=== PATIENT | female | born 1955 | race African-American/Black ===

== ENCOUNTER → 2018-08-19 | Outpatient (CLI) | payer OTHER ==
[2017-10-29 23:59] VITALS: BP 144/77
[~2018-08-19] MED LIST: AMLO1TAB2 PO; ASPI1TAB31 PO; ASPI325T11 PO; CARV12.5 PO; CARV6.2541 PO; LISI10TA2 PO; LORA-254 PO; LORA10TA3 PO; METO25TA4 PO; NAPR-514 PO; PROP10TA PO; XOPENEX HFA15 GM IH
--- NOTE | 2018-08-23 13:37 | RAD ---
DATE: 08/19/2018 EXAM: DIGITAL SCREEN BILAT W/CAD HISTORY: Routine screen COMPARISON: 09/21/2010 This study was interpreted with the benefit of Computerized Aided Detection (CAD). Breast Density: HETERO The breast parenchyma is heterogenously dense, which could reduce sensitivity of mammography. Breast parenchyma level C. FINDINGS: The breasts are heterogeneous in a nodular pattern. No new or enlarging breast densities are seen. No spiculated mass or architectural distortion is evident. No suspicious microcalcifications are seen. IMPRESSION: Stable mammograms without evidence of malignancy. BI-RADS CATEGORY: 2 BENIGN FINDING(S) RECOMMENDED FOLLOW-UP: 12M 12 MONTH FOLLOW-UP PQRS compliance statement: Patient information was entered into a reminder system with a target due date for the next mammogram. Mammography is a sensitive method for finding small breast cancers, but it does not detect them all and is not a substitute for careful clinical examination. A negative mammogram does not negate a clinically suspicious finding and should not result in delay in biopsying a clinically suspicious abnormality. "Our facility is accredited by the [employer]."
== END | disposition home or self-care (01) ==
LOC: MERGE 15:25 → MAMMO 15:25
PROVIDERS: ATTEND Nurse Practitioner Family
DX: Z12.31 Encounter for screening mammogram for malignant neoplasm of breast (principal)
CPT/HCPCS: 77067

== ENCOUNTER 2018-08-26 20:10 | Emergency (ER) | payer SELFPAY ==
[~2018-08-26] VITALS: Ht 165.1 cm; Wt 68.0 kg
--- NOTE | 2018-08-26 20:46 | PHYS DOC ---
Past History Past Medical History: Hypertension, Hypothyroid Past Surgical History: No Surgical History Smoking: Cigarettes Additional Smoking Information: 1/2 PACK Alcohol Use: None Drug Use: None Adult General Chief Complaint Chief Complaint: HEADACHE HPI HPI Patient is a 63 year old female who presents with complaint of frontal headache. Patient states her symptoms have been present over the past 2 days. Patient states that she is having mild headache that has been somewhat responsive to Tylenol, however she states that after it wears off she continues to have headache. Denies any associated difficulty with speech or swallowing, vision changes, numbness, or weakness. Patient states that she has been under an increased amount of stress caring for a family member and states that she may not be sleeping as well as she had been. Also admits that she may not be drinking enough fluids. Denies any fever, shortness of breath, chest pain, sinus pressure, vomiting, or abdominal pain. Review of Systems Review of Systems Constitutional: Denies fever or chills [] Eyes: Denies change in visual acuity, redness, or eye pain [] HENT: Denies nasal congestion or sore throat [] Respiratory: Denies cough or shortness of breath [] Cardiovascular: No additional information not addressed in HPI [] GI: Denies abdominal pain, nausea, vomiting, bloody stools or diarrhea [] : Denies dysuria or hematuria [] Musculoskeletal: Denies back pain or joint pain [] Integument: Denies rash or skin lesions [] Neurologic: Headache, denies focal weakness or sensory changes [] All other systems were reviewed and found to be within normal limits, except as documented in this note. Allergies Allergies Allergies Coded Allergies Type Severity Reaction Last Updated Verified No Known Drug Allergies 12/26/14 No Physical Exam Physical Exam Constitutional: Well developed, well nourished, no acute distress, non-toxic appearance. [] HENT: Normocephalic, atraumatic, bilateral external ears normal, oropharynx moist, no oral exudates, nose normal. [] Eyes: PERRLA, EOMI, conjunctiva normal, no discharge. [] Neck: Normal range of motion, no tenderness, supple, no stridor. [] Cardiovascular:Heart rate regular rhythm, no murmur [] Lungs & Thorax: Bilateral breath sounds clear to auscultation [] Abdomen: Bowel sounds normal, soft, no tenderness, no masses, no pulsatile masses. [] Skin: Warm, dry, no erythema, no rash. [] Back: No tenderness, no CVA tenderness. [] Extremities: No tenderness, no cyanosis, no clubbing, ROM intact, no edema. [] Neurologic: Alert and oriented X 3, normal motor function, normal sensory function, no focal deficits noted. [] Current Patient Data Vital Signs Vital Signs Date Time Temp Pulse Resp B/P (MAP) Pulse Ox O2 Delivery O2 Flow Rate FiO2 08/26/18 20:15 98.5 82 16 100 Room Air Lab Results Not performed EKG EKG Not performed[] Radiology/Procedures Radiology/Procedures Not performed[] Course & Med Decision Making Course & Med Decision Making Pertinent Labs and Imaging studies reviewed. (See chart for details) Patient's exam is benign. Patient's headache does not appear to be secondary to severe cause. Likely combination of stress, mild dehydration, and overexertion. The patient was given ibuprofen in the emergency department. Advised to increase fluid intake, rest, and to continue with low-dose ibuprofen and Tylenol for outpatient treatment. Advised follow-up with primary doctor in 5 days if symptoms are not improving and return to emergency department for any worsening symptoms. Patient was understanding and in agreement with treatment plan. Dragon Disclaimer Dragon Disclaimer This electronic medical record was generated, in whole or in part, using a voice recognition dictation system. Departure Departure: Impression: Primary Impression: Generalized headache Disposition: 01 HOME, SELF-CARE Condition: GOOD Referrals: LOUISE LYONS DO (PCP) Patient Instructions: General Headache Without Cause Additional Instructions: You may take [id number] ibuprofen 1-2 tablets every 6 hours as needed for headache for the next 5 days. You may also take extra strength Tylenol 1-2 tablets every 6 hours as needed for pain. Follow-up the primary doctor in 5-7 days. Return to the emergency department for any worsening symptoms. BG HOYT MD Aug 26, 2018 20:46
[2018-08-26] MEDS ORDERED: IBUPROFEN 400 MG TABLET. PO ONE (20:48)
[2018-08-26] MEDS: IBUPROFEN 400 MG TABLET. PO ONE (20:53)
[2018-08-26 20:54] VITALS: BP 107/83
== END 2018-08-26 20:54 | disposition home or self-care (01) ==
LOC: ER 20:10
DX: R51 Headache (principal); I10 Essential (primary) hypertension; E03.9 Hypothyroidism, unspecified; F17.210 Nicotine dependence, cigarettes, uncomplicated
CPT/HCPCS: 99282

== ENCOUNTER 2019-03-03 09:23 | Emergency (ER) | payer SELFPAY ==
[~2019-03-03] VITALS: Ht 165.1 cm; Wt 67.3 kg
[2019-03-03] MEDS ORDERED: KETOROLAC 15 MG/ML VIAL. IM ONE (09:45)
--- NOTE | 2019-03-03 10:02 | RAD ---
Examination: WRIST 3V LEFT History: Pain Comparison/Correlation: None Findings: Total 3 images of the left wrist were obtained. No acute fracture or bony destruction. Soft tissues are unremarkable. Mild narrowing of the first carpometacarpal joint suggested. Impression: No suspicious process. Electronically signed by: Jeromy Concepcion MD (03/03/2019 9:59 AM) [id number]
[2019-03-03] MEDS ORDERED: MELO7.5T29 PO (10:16)
[2019-03-03] MEDS ORDERED: METH4TAB2 PO (10:16)
--- NOTE | 2019-03-03 10:17 | PHYS DOC ---
Past History Past Medical History: Hypertension, Hypothyroid Past Surgical History: Other Smoking: Cigarettes Alcohol Use: None Drug Use: None Adult General Chief Complaint Chief Complaint: HAND PROBLEM HPI HPI Patient is a [age] year old [sex] who presents with [] Review of Systems Review of Systems Constitutional: Denies fever or chills [] Eyes: Denies change in visual acuity, redness, or eye pain [] HENT: Denies nasal congestion or sore throat [] Respiratory: Denies cough or shortness of breath [] Cardiovascular: No additional information not addressed in HPI [] GI: Denies abdominal pain, nausea, vomiting, bloody stools or diarrhea [] : Denies dysuria or hematuria [] Musculoskeletal: Denies back pain or joint pain [] Integument: Denies rash or skin lesions [] Neurologic: Denies headache, focal weakness or sensory changes [] Endocrine: Denies polyuria or polydipsia [] All other systems were reviewed and found to be within normal limits, except as documented in this note. Current Medications Current Medications Current Medications Medications (Trade) Dose Ordered Sig/Cassie Start Time Stop Time Status Last Admin Dose Admin Ketorolac Tromethamine (Toradol 15mg Vial) 15 mg 1X ONCE 03/03/19 09:45 03/03/19 09:46 DC 03/03/19 09:56 15 MG Allergies Allergies Allergies Coded Allergies Type Severity Reaction Last Updated Verified No Known Drug Allergies 03/03/19 No Physical Exam Physical Exam Constitutional: Well developed, well nourished, no acute distress, non-toxic appearance. [] HENT: Normocephalic, atraumatic, bilateral external ears normal, oropharynx moist, no oral exudates, nose normal. [] Eyes: PERRLA, EOMI, conjunctiva normal, no discharge. [] Neck: Normal range of motion, no tenderness, supple, no stridor. [] Cardiovascular:Heart rate regular rhythm, no murmur [] Lungs & Thorax: Bilateral breath sounds clear to auscultation [] Abdomen: Bowel sounds normal, soft, no tenderness, no masses, no pulsatile masses. [] Skin: Warm, dry, no erythema, no rash. [] Back: No tenderness, no CVA tenderness. [] Extremities: No tenderness, no cyanosis, no clubbing, ROM intact, no edema. [] Neurologic: Alert and oriented X 3, normal motor function, normal sensory fu nction, no focal deficits noted. [] Psychologic: Affect normal, judgement normal, mood normal. [] Current Patient Data Vital Signs Vital Signs Date Time Temp Pulse Resp B/P (MAP) Pulse Ox O2 Delivery O2 Flow Rate FiO2 03/03/19 09:25 97.9 89 18 95 Room Air EKG EKG [] Radiology/Procedures Radiology/Procedures Examination: WRIST 3V LEFT History: Pain Comparison/Correlation: None Findings: Total 3 images of the left wrist were obtained. No acute fracture or bony destruction. Soft tissues are unremarkable. Mild narrowing of the first carpometacarpal joint suggested. Impression: No suspicious process.[] Course & Med Decision Making Course & Med Decision Making Pertinent Labs and Imaging studies reviewed. (See chart for details) ED course: Patient arrived, was placed in bed, and tolerated exam well. She was transported to and from radiology with any complications. She received IM NSAIDs which improved her discomfort. Discussed findings and plan with patient who voiced understanding. She was placed in a wrist splint and was distally neurovascularly intact after splint application. All questions were answered. She was discharged in improved condition. Medical decision making: There is no evidence of a fracture or dislocation. No evidence of bony tumor. No evidence of neurologic or vascular compromise. No evidence of this being an acute coronary syndrome.[] Dragon Disclaimer Dragon Disclaimer This electronic medical record was generated, in whole or in part, using a voice recognition dictation system. Departure Departure: Impression: Primary Impression: Left wrist sprain Disposition: 01 HOME, SELF-CARE Condition: IMPROVED Referrals: PCP,NO (PCP) Patient Instructions: Wrist Splint, Wrist Sprain with [facility] Additional Instructions: Follow-up with your regular doctor in 2 days. If you do not have a regular doctor a list of local clinics will be provided for you. Rest, apply warm compresses at least 4 times a day for 15 minutes at a time. Stop smoking, every time he smoked shrink blood vessels which are what brain healing in nutrition to your wrist and all other parts of your body. Return to the ER if worsening pain, weakness, or any other concerns. Scripts Methylprednisolone (MEDROL) 4 Mg Tab.ds.pk 1 PKG PO UD for inflammation, #1 PKG Prov: JUSTUSNESTORSHANIQUEMIGUELINA DO 03/03/19 Meloxicam (MELOXICAM) 7.5 Mg Tablet 7.5 MG PO DAILY for PAIN, #20 TAB Prov: MIGUELINA RAMIREZ DO 03/03/19 Problem Qualifiers Primary Impression: Left wrist sprain Encounter type: initial encounter Qualified Codes: S63.502A - Unspecified sprain of left wrist, initial encounter MIGUELINA RAMIREZ DO Mar 03, 2019 10:17
[2019-03-03 10:26] VITALS: BP 114/60
--- NOTE | 2019-03-03 10:34 | PHYS DOC ---
Past History Past Medical History: Hypertension, Hypothyroid Past Surgical History: No Surgical History Smoking: Cigarettes, Less than 1pk/day Alcohol Use: None Drug Use: None Adult General Chief Complaint Chief Complaint: HAND PROBLEM HPI HPI Patient is a 63-year-old female presents with left wrist pain that has been aching for the past week. Feels like a toothache. No worse with exertion. Patient has been doing increased lifting, moving, and cleaning over the past several weeks, helping out her mother. She denies any chest pain or difficulty breathing. No trauma. No weakness, numbness, or tingling. Increased pain with movement of the wrist. She gets some relief with ibuprofen, 400 mg at a time. No radiation of the discomfort. Pain is mild to moderate. No prior history of surgery or wrist injury in that area.[] Review of Systems Review of Systems Constitutional: Denies fever or chills [] Eyes: Denies change in visual acuity, redness, or eye pain [] HENT: Denies nasal congestion or sore throat [] Respiratory: Denies cough or shortness of breath [] Cardiovascular: No chest pain or palpitations[] GI: Denies abdominal pain, nausea, vomiting, bloody stools or diarrhea [] : Denies dysuria or hematuria [] Musculoskeletal: Denies back pain, see history of present illness[] Integument: Denies rash or skin lesions [] Neurologic: Denies headache, focal weakness or sensory changes [] Endocrine: Denies polyuria or polydipsia [] All other systems were reviewed and found to be within normal limits, except as documented in this note. Allergies Allergies Allergies Coded Allergies Type Severity Reaction Last Updated Verified No Known Drug Allergies 12/26/14 No Physical Exam Physical Exam Constitutional: Well developed, well nourished, no acute distress, non-toxic appearance. [] HENT: Normocephalic, atraumatic, bilateral external ears normal, oropharynx moist, no oral exudates, nose normal. [] Eyes: PERRLA, EOMI, conjunctiva normal, no discharge. [] Neck: Normal range of motion, no tenderness, supple, no stridor. [] Cardiovascular:Heart rate regular rhythm, no murmur [] Lungs & Thorax: Bilateral breath sounds clear to auscultation [] Abdomen: Not examined[] Skin: Warm, dry, no erythema, no rash. [] Back: No tenderness, no CVA tenderness. [] Extremities: Left hand and wrist has diffuse tenderness. No specific pain with axial loading of any of the long bones. No snuffbox tenderness. Full active range of motion. Normal opposition. FDS, FDP, and extensor mechanisms are all intact. Capillary refills less than 2 seconds. 2 point discrimination is less than 5 mm. The other 3 extremities show: No tenderness, no cyanosis, no clubbing, ROM intact, no edema. [] Neurologic: Alert and oriented X 3, normal motor function, normal sensory function, no focal deficits noted. [] Psychologic: Affect normal, judgement normal, mood normal. [] EKG EKG [] Radiology/Procedures Radiology/Procedures [] Course & Med Decision Making Course & Med Decision Making Pertinent Labs and Imaging studies reviewed. (See chart for details) [] Dragon Disclaimer Dragon Disclaimer This electronic medical record was generated, in whole or in part, using a voice recognition dictation system. Departure Departure: Referrals: PCP,JOSE MANUEL (PCP) MIGUELINA RAMIREZ DO Mar 03, 2019 10:34
== END 2019-03-03 10:25 | disposition home or self-care (01) ==
LOC: ER 09:23
DX: S63.502A Unspecified sprain of left wrist, initial encounter (principal); I10 Essential (primary) hypertension; E03.9 Hypothyroidism, unspecified; F17.210 Nicotine dependence, cigarettes, uncomplicated; X50.9XXA Other and unspecified overexertion or strenuous movements or postures, initial encounter; Y93.89 Activity, other specified; Y92.89 Other specified places as the place of occurrence of the external cause; Y99.8 Other external cause status
CPT/HCPCS: 29125; 73110; 96372; 99284; J1885

== ENCOUNTER 2019-07-20 22:46 | Emergency (ER) | payer OTHER ==
[~2019-07-20] VITALS: Ht 165.1 cm; Wt 68.9 kg
[~2019-07-20 22:46] MED LIST changes: +MELO7.5T29 PO; +METH4TAB2 PO
[2019-07-20] MEDS ORDERED: IV NORMAL SALINE 1,000ML 1,000 ML IV ONE (23:30)
[2019-07-20] MEDS ORDERED: ONDANSETRON PF 4 MG/2 ML VIAL. IV ONE (23:30)
[2019-07-20 23:54] LABS: BASO % 0 % (0-3); EOS # 0.1 x10^3/uL (0.0-0.7); EOS % 1 % (0-3); HEMATOCRIT 48.9 % (36.0-47.0); HEMOGLOBIN 16.1 g/dL (12.0-15.5); LYMPH # 0.5 x10^3/uL (1.0-4.8); LYMPH % 4 % (24-48); MEAN CORPUSCULAR HEMOGLOBIN 31 pg (25-35); MEAN CORPUSCULAR HGB CONC 33 g/dL (31-37); MEAN CORPUSCULAR VOLUME 93 fL (79-100); MONO # 0.4 x10^3/uL (0.0-1.1); MONO % 4 % (0-9); NEUT # 9.6 x10^3uL (1.8-7.7); NEUT % 91 % (31-73); PLATELET COUNT 163 x10^3/uL (140-400); RED BLOOD COUNT 5.27 x10^6/uL (3.50-5.40); WHITE BLOOD COUNT 10.5 x10^3/uL (4.0-11.0)
[2019-07-21 00:10] LABS: ALBUMIN/GLOBULIN RATIO 1.1 (1.0-1.7); CALCIUM 8.9 mg/dL (8.5-10.1); CREATININE 0.7 mg/dL (0.6-1.0); GFR 102.6; TOTAL BILIRUBIN 0.5 mg/dL (0.2-1.0); TOTAL PROTEIN 7.5 g/dL (6.4-8.2)
[2019-07-21] MEDS ORDERED: ONDA4TAB12 PO (00:50)
[2019-07-21 01:08] VITALS: BP 82/52
--- NOTE | 2019-07-21 01:13 | PHYS DOC ---
Past History Past Medical History: Hypertension, Hypothyroid Past Surgical History: Other Smoking: Cigarettes, Less than 1pk/day Alcohol Use: None Drug Use: None Adult General Chief Complaint Chief Complaint: ABDOMINAL PAIN HPI HPI Patient is a 63 yo f p/w cc of nausea and vomiting patient ate some chicken sa lad from [facility] in about 2 hours later she began to feel nauseous she threw up a couple of times really no abdominal pain just a lot of nausea she threw up once in the waiting room as well she has not had diarrhea yet no chest pain she really thinks that there was something bad in the chicken salad. The symptoms started right after that. Review of Systems Review of Systems Constitutional: Denies fever or chills [] Eyes: Denies change in visual acuity, redness, or eye pain [] HENT: Denies nasal congestion or sore throat [] Respiratory: Denies cough or shortness of breath [] ] Integument: Denies rash or skin lesions [] Neurologic: Denies headache, focal weakness or sensory changes [] Endocrine: Denies polyuria or polydipsia [] All other systems were reviewed and found to be within normal limits, except as documented in this note. Current Medications Current Medications Current Medications Medications (Trade) Dose Ordered Sig/Cassie Start Time Stop Time Status Last Admin Dose Admin Ondansetron HCl (Zofran) 4 mg 1X ONCE 07/20/19 23:30 07/20/19 23:31 DC 07/20/19 23:30 4 MG Sodium Chloride 1,000 ml @ 1,000 mls/hr 1X ONCE 07/20/19 23:30 07/21/19 00:29 DC 07/20/19 23:30 1,000 MLS/HR Allergies Allergies Allergies Coded Allergies Type Severity Reaction Last Updated Verified No Known Drug Allergies 03/03/19 No Physical Exam Physical Exam Constitutional: Well developed, well nourished, no acute distress, non-toxic appearance. [] HENT: Normocephalic, atraumatic, bilateral external ears normal, oropharynx dry, no oral exudates, nose normal. [] Eyes: PERRLA, EOMI, conjunctiva normal, no discharge. [] Neck: Normal range of motion, no tenderness, supple, no stridor. [] Cardiovascular:Heart rate regular rhythm, no murmur [] Lungs & Thorax: Bilateral breath sounds clear to auscultation [] Abdomen: Bowel sounds normal, soft, no tenderness, no masses, no pulsatile masses. [] Skin: Warm, dry, no erythema, no rash. [] Back: No tenderness, no CVA tenderness. [] Extremities: No tenderness, no cyanosis, no clubbing, ROM intact, no edema. [] Neurologic: Alert and oriented X 3, normal motor function, normal sensory function, no focal deficits noted. [] Psychologic: Affect normal, judgement normal, mood normal. [] Current Patient Data Vital Signs Vital Signs Date Time Temp Pulse Resp B/P (MAP) Pulse Ox O2 Delivery O2 Flow Rate FiO2 07/20/19 22:46 98.5 105 18 98 Room Air perature (Fahrenheit): * 98.5 degrees F (97.6-99.5) Patient Temperature * 98.5 degrees F (97.5-99.5) Temperature Source * Oral Blood Pressure Systolic * 120 mm Hg (100-140) Blood Pressure Diastolic * 72 mm Hg (60-100) Blood Pressure Mean * 88 mm Hg Pulse Rate * 105 beats per minute (60-90) H Pulse Assessment Method * Monitor Respiratory Rate * 18 breaths per minute (12-24) Oxygen Delivery Method * Room Air Bedside Pulse Oximetry * 98 % Treatment Prior to Arrival Lab Results Laboratory Tests Test 07/20/19 23:40 White Blood Count 10.5 x10^3/uL (4.0-11.0) Red Blood Count 5.27 x10^6/uL (3.50-5.40) Hemoglobin 16.1 g/dL (12.0-15.5) H Hematocrit 48.9 % (36.0-47.0) H Mean Corpuscular Volume 93 fL (79-100) Mean Corpuscular Hemoglobin 31 pg (25-35) Mean Corpuscular Hemoglobin Concent 33 g/dL (31-37) Red Cell Distribution Width 14.0 % (11.5-14.5) Platelet Count 163 x10^3/uL (140-400) Neutrophils (%) (Auto) 91 % (31-73) H Lymphocytes (%) (Auto) 4 % (24-48) L Monocytes (%) (Auto) 4 % (0-9) Eosinophils (%) (Auto) 1 % (0-3) Basophils (%) (Auto) 0 % (0-3) Neutrophils # (Auto) 9.6 x10^3uL (1.8-7.7) H Lymphocytes # (Auto) 0.5 x10^3/uL (1.0-4.8) L Monocytes # (Auto) 0.4 x10^3/uL (0.0-1.1) Eosinophils # (Auto) 0.1 x10^3/uL (0.0-0.7) Basophils # (Auto) 0.0 x10^3/uL (0.0-0.2) Sodium Level 139 mmol/L (136-145) Potassium Level 4.0 mmol/L (3.5-5.1) Chloride Level 103 mmol/L (98-107) Carbon Dioxide Level 23 mmol/L (21-32) Anion Gap 13 (6-14) Blood Urea Nitrogen 19 mg/dL (7-20) Creatinine 0.7 mg/dL (0.6-1.0) Estimated GFR (Cockcroft-Gault) 102.6 BUN/Creatinine Ratio 27 (6-20) H Glucose Level 114 mg/dL (70-99) H Calcium Level 8.9 mg/dL (8.5-10.1) Total Bilirubin 0.5 mg/dL (0.2-1.0) Aspartate Amino Transferase (AST) 20 U/L (15-37) Alanine Aminotransferase (ALT) 20 U/L (14-59) Alkaline Phosphatase 92 U/L (46-116) Troponin I Quantitative < 0.017 ng/mL (0-0.055) Total Protein 7.5 g/dL (6.4-8.2) Albumin 4.0 g/dL (3.4-5.0) Albumin/Globulin Ratio 1.1 (1.0-1.7) Lipase 92 U/L (73-393) EKG EKG []Normal sinus rhythm rate of 95 no acute ischemic changes noted interpreted by me the time of encounter Radiology/Procedures Radiology/Procedures [] Course & Med Decision Making Course & Med Decision Making Pertinent Labs and Imaging studies reviewed. (See chart for details) []This is a 63-year-old female denies significant prior past medical history other than hypertension presenting with chief complaint of nausea and vomiting after eating chicken salad at [facility] we did an extensive evaluation in the emergency room the EKG and troponin were negative for acute ischemia I have very low suspicion for this labs basically are reassuring the do so show some evidence of mild hemoconcentration we gave IV fluids for this we gave Zofran she felt much better she was discharged in stable condition return precautions discussed for any development of abdominal pain fever feeling worse rather than better migrating pain or any other symptoms or concerns she is agreeable to the plan Dragon Disclaimer Dragon Disclaimer This electronic medical record was generated, in whole or in part, using a voice recognition dictation system. Departure Departure: Impression: Primary Impression: Vomiting Disposition: HOME, SELF-CARE Condition: IMPROVED Patient Instructions: Nausea and Vomiting, [id number] Scripts Ondansetron (ONDANSETRON ODT) 4 Mg Tab.rapdis 1 TAB PO PRN Q6-8HRS PRN for NAUSEA/VOMITING, #16 TAB Prov: SONAM HO MD 07/21/19 SONAM HO MD Jul 21, 2019 01:13
--- NOTE | 2019-07-21 13:04 | EKG ---
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
== END 2019-07-21 01:10 | disposition home or self-care (01) ==
LOC: ER 22:46
DX: R11.2 Nausea with vomiting, unspecified (principal); E03.9 Hypothyroidism, unspecified; I10 Essential (primary) hypertension; F17.210 Nicotine dependence, cigarettes, uncomplicated
CPT/HCPCS: 36415; 80053; 83690; 84484; 85025; 93005; 96361; 96374; 99285; J2405; J7030

== ENCOUNTER → 2020-11-03 | Outpatient (CLI) | payer OTHER ==
[~2020-11-03] MED LIST changes: +LISI10TA16 PO; -LISI10TA2 PO; +ONDA4TAB12 PO
--- NOTE | 2020-11-04 11:40 | RAD ---
DATE: 11/03/2020 11:25 AM EXAM: DIGITAL SCREEN BILAT W/CAD HISTORY: Screening COMPARISON: 08/19/2018 Bilateral full field craniocaudal and mediolateral oblique images were obtained using digital technique. This study was interpreted with the benefit of Computerized Aided Detection (CAD). FINDINGS: Breast Density: HETERO The breast parenchyma Is heterogeneously dense, which could reduce sensitivity of mammography. Breast parenchyma level C No suspicious masses, microcalcifications or architectural distortion is present to suggest malignancy in either breast. The visualized axillae are unremarkable. IMPRESSION: No mammographic evidence of malignancy. BI-RADS CATEGORY: 1 NEGATIVE RECOMMENDED FOLLOW-UP: 12M 12 MONTH FOLLOW-UP Annual screening mammography is recommended, unless clinically indicated sooner based on symptoms or change in physical exam. PQRS compliance statement: Patient information was entered into a reminder system with a target due date for the next mammogram. Mammography is a sensitive method for finding small breast cancers, but it does not detect them all and is not a substitute for careful clinical examination. A negative mammogram does not negate a clinically suspicious finding and should not result in delay in biopsying a clinically suspicious abnormality. "Our facility is accredited by the [employer]."
== END ==
LOC: MAMMO 11:17
PROVIDERS: ATTEND Nurse Practitioner Family
DX: Z12.31 Encounter for screening mammogram for malignant neoplasm of breast (principal)
CPT/HCPCS: 77067

== ENCOUNTER 2021-12-19 14:11 | Emergency (ER) | payer MEDICARE, OTHER ==
[~2021-12-19] VITALS: Ht 165.1 cm; Wt 60.4 kg
--- NOTE | 2021-12-19 14:53 | PHYS DOC ---
Past History Past Medical History: Hypertension Past Surgical History: Other Additional Past Surgical Histo: unknown Smoking: Cigarettes, Less than 1pk/day Alcohol Use: None Drug Use: None General Adult EDM: Chief Complaint: MECHANICAL FALL HPI: HPI: Patient is a 66-year-old female who presents to the emergency department following a fall that occurred prior to ER arrival.. Patient was being moved from rehab facility to assisted living facility and she was standing up with her cane she lost her balance and fell onto her right knee. Patient rates her pain 3 out of 10. No treatment prior to arrival. Family members report that she was able to slightly bear weight following the fall. She denies hitting her head, loss of consciousness, lightheadedness, neck or back pain. Review of Systems: Review of Systems: HENT: See HPI Musculoskeletal: See HPI Integument: Reports swelling to anterior aspect of knee Neurologic: See HPI Allergies: Allergies: Allergies Coded Allergies Type Severity Reaction Last Updated Verified No Known Drug Allergies 12/19/21 No Physical Exam: PE: Constitutional: Well developed, well nourished, no acute distress, non-toxic appearance. [] HENT: Normocephalic, atraumatic, bilateral external ears normal, oropharynx moist, no oral exudates, nose normal. [] Eyes: PERRL, EOMI, conjunctiva normal, no discharge. [] Neck: Normal range of motion, no tenderness, supple, no stridor. [] Cardiovascular:Heart rate regular rhythm, no murmur [] Lungs & Thorax: Bilateral breath sounds clear to auscultation [] Abdomen: Bowel sounds normal, soft, no tenderness, no masses, no pulsatile masses. [] Skin: Warm, dry, no erythema, no rash. [] Back: No tenderness, normal range of motion Extremities: No tenderness, no cyanosis, no clubbing, ROM intact, no edema. [] Right knee: Mild swelling noted to anterior aspect of right knee, pain with palpation to anterior aspect of right knee, no crepitus, range of motion intact, neuro intact Neurologic: Alert and oriented X 3, normal motor function, normal sensory function, no focal deficits noted. [] Psychologic: Affect normal, judgement normal, mood normal. [] EKG: EKG: [] Radiology/Procedures: Radiology/Procedures: []PROCEDURE: KNEE RIGHT 3V EXAM: Right knee, 3 views. HISTORY: Fall. COMPARISON: None. FINDINGS: 3 views of the right knee are obtained. There is cortical irregularity along the articular aspect of the lateral femoral condyle possibly due to a tiny osteochondral lesion. There is no joint effusion to suggest acute fracture. There is bone demineralization. IMPRESSION: 1. Possible tiny osteochondral lesion within the articular aspect of the lateral femoral condyle. 2. Bone demineralization. Electronically signed by: Betty Hanks MD (12/19/2021 3:18 PM) [id number] DICTATED AND SIGNED BY: BETTY HANKS MD DATE: 12/19/21 [id number] CC: EMERGENCY,DEPARTMENT; YOKASTA HAN; KATLYN GALVAN APRN ~ Heart Score: C/O Chest Pain: N/A Risk Factors: Risk Factors: DM, Current or recent (<one month) smoker, HTN, HLP, family history of CAD, obesity. Risk Scores: Score 0 - 3: 2.5% MACE over next 6 weeks - Discharge Home Score 4 - 6: 20.3% MACE over next 6 weeks - Admit for Clinical Observation Score 7 - 10: 72.7% MACE over next 6 weeks - Early Invasive Strategies Course & Med Decision Making: Course & Med Decision Making Pertinent Labs and Imaging studies reviewed. (See chart for details) [] Patient resents to the emergency department for right knee pain after falling onto it. An x-ray was performed that showed Possible tiny osteochondral lesion within the articular aspect of the lateral femoral condyle. Patient advised to follow-up with her primary care provider regarding this finding if she continues to have pain she may need an MRI. Advised to take Tylenol and ibuprofen at home for pain. I discussed with patient all findings and diagnostic testing as well as the need to follow-up with PCP for further evaluat ion and treatment or return to the ER if any new or worsening symptoms. Strict return precautions were also discussed at length. Patient voiced understanding and agreement with the plan. Patient is hemodynamically stable at the time of disposition. Dragon Disclaimer: Dragon Disclaimer: This electronic medical record was generated, in whole or in part, using a voice recognition dictation system. Departure Departure: Impression: Primary Impression: Fall Qualified Codes: W19.XXXA - Unspecified fall, initial encounter Additional Impression: Knee contusion Qualified Codes: S80.01XA - Contusion of right knee, initial encounter Disposition: HOME / SELF CARE / HOMELESS Condition: GOOD Referrals: YOKASTA HAN (PCP) CHRISTO ADAMS II, MD Patient Instructions: Fall Prevention and Home Safety, RICE - Routine Care for Injuries Additional Instructions: You are seen in the emergency department today for knee pain following a fall. Please see attached x-ray report as you will need to follow-up with your primary care provider regarding this finding. You may need an MRI of your knee if you continue to have pain. Take Tylenol and ibuprofen for pain. Apply ice and use elevation for swelling. Sometimes compression with an Wiley wrap can help with pain and swelling. Return to the emergency department if you develop worsening of your pain, decreased range of motion or decreased sensation in your extremity. KATLYN GALVAN FORENSIC ECONOMIST December 19, 2021 14:53
--- NOTE | 2021-12-19 15:20 | RAD ---
EXAM: Right knee, 3 views. HISTORY: Fall. COMPARISON: None. FINDINGS: 3 views of the right knee are obtained. There is cortical irregularity along the articular aspect of the lateral femoral condyle possibly due to a tiny osteochondral lesion. There is no joint effusion to suggest acute fracture. There is bone demineralization. IMPRESSION: 1. Possible tiny osteochondral lesion within the articular aspect of the lateral femoral condyle. 2. Bone demineralization. Electronically signed by: Betty Sawyer MD (12/19/2021 3:18 PM) [id number]
[2021-12-19 16:30] VITALS: BP 157/78
== END 2021-12-19 16:30 | disposition home or self-care (01) ==
LOC: ER 14:11
DX: S80.01XA Contusion of right knee, initial encounter (principal); I10 Essential (primary) hypertension; F17.210 Nicotine dependence, cigarettes, uncomplicated; W18.39XA Other fall on same level, initial encounter; Y93.89 Activity, other specified; Y92.89 Other specified places as the place of occurrence of the external cause; Y99.8 Other external cause status
CPT/HCPCS: 73562; 99284

== ENCOUNTER 2021-12-20 17:56 | Emergency (ER) | payer MEDICARE, OTHER ==
[~2021-12-20] VITALS: Ht 165.1 cm; Wt 60.4 kg
--- NOTE | 2021-12-20 18:11 | PHYS DOC ---
General Adult EDM: Chief Complaint: LOWER EXT PAIN HPI: HPI: ".. I fell the other day.. hurt this right knee.. but they want more xrays.. I in rehab at [facility].. I don't know why .. your the doctor.. do something about this pain... My right knee is killing me".. " thats what I want. do something about my pain. .." Patient is a 66 year old female who presents with above hx and complaints of Rt. knee pain and hip pain after a fall.. Pt. follows with Alfredo on out pt. Pt. transfer [facility] for continue Rt knee and Leg pain from previous fall. [facility] record currently not with pt. patient reportedly a assisted care living at [facility] since 12/19/2021,. History of recent fall reportedly x-rays did not show fracture on prior exam of right knee. Patient reportedly sent back to the ED to be reevaluated for her right knee pain Patient does not have reported past history of iron deficient anemia, hypothyroidism, hyperlipidemia, dementia, behavioral disturbance, major depressive disorder, myopathy, CVA swith hemiplegia right and left, hypertension, compression of brain, aphasia, dysphagia, facial weakness, tracheostomy, and hypertension. Review of Systems: Review of Systems: Constitutional: Denies fever or chills Eyes: Denies change in visual acuity HENT: Denies nasal congestion or sore throat Respiratory: Denies cough or shortness of breath Cardiovascular: Denies chest pain or edema GI: Denies abdominal pain, nausea, vomiting, bloody stools or diarrhea : Denies dysuria Musculoskeletal: Complains of right knee and hip pain Integument: Denies rash Neurologic: Denies headache, focal weakness or sensory changes Endocrine: Denies polyuria or polydipsia Lymphatic: Denies swollen glands Psychiatric: Denies depression or anxiety Family History: Family History: Not currently available Current Medications: Current Meds: See nursing for shelter meds Allergies: Allergies: Allergies Coded Allergies Type Severity Reaction Last Updated Verified No Known Drug Allergies 12/19/21 No Physical Exam: PE: Constitutional: Moderate acute distress, non-toxic appearance. [] HENT: Normocephalic, atraumatic, bilateral external ears normal, oropharynx moist, no oral exudates, nose normal. [] Eyes: PERRLA, EOMI, conjunctiva normal, no discharge. [] Neck: Normal range of motion, no tenderness, supple, no stridor. [] Cardiovascular: Tachycardia heart rate regular rhythm, no murmur []. PMI to the left Lungs & Thorax: Bilateral breath sounds equal apex with scattered crackles in bases. Auscultation [] Abdomen: Bowel sounds normal, soft, no tenderness, no masses, no pulsatile masses. Distended. Skin: Warm, dry, no erythema, no rash. [] Back: No tenderness, no CVA tenderness. [] Extremities: Marked right hip and right knee tenderness, no cyanosis, no clubbing, ROM limited in right leg due to hip pain, no edema. [] Neurologic: Alert and oriented X 3,moves ext. on request, but marked pain in Rt. knee and hip, has distal sensory. no newocal deficits noted per pt. and daughter. Psychologic: Affect anxious,, judgement may be somewhat limited, history of dementia,, mood depressed. EKG: EKG: My interpretation EKG shows a sinus rhythm at 97 bpm. No acute morphology time of EKG is 2006 [] Radiology/Procedures: Radiology/Procedures: [place] [address] IMAGING REPORT Signed PATIENT: JENNIE ANDRADEOUNT: [id number] : 1955 LOCATION: ER AGE: 66 SEX: F EXAM STATUS: REG ER ORD. PHYSICIAN: KEVEN MAXWELL MD REASON: Fall, right upper leg and pelvis pain PROCEDURE: RIGHT FEMUR XRAY EXAMINATION: XR KNEE 4 VIEWS WITH PATELLA_RT, XR FEMUR_RIGHT CLINICAL HISTORY: Right lower extremity pain following fall. TECHNIQUE: XR KNEE 4 VIEWS WITH PATELLA_RT, XR FEMUR_RIGHT COMPARISON: Right knee radiographs 12/19/2021 FINDINGS/ IMPRESSION: RIGHT FEMUR: No evidence of acute fracture. Right hip joint incompletely evaluated. Vascular calcifications. RIGHT KNEE: No definitive evidence of acute fracture. Medial and lateral compartment narrowing, suboptimally evaluated due to patient positioning. No joint effusion. Vascular calcifications. Electronically signed by: Kelby Fermin DO (12/20/2021 6:57 PM) [facility] DICTATED AND SIGNED BY: KELBY FERMIN DO DATE: 12/20/211852 CC: KEVEN MAXWELL MD; YOKASTA HAN ~ [address] [place] [id number] IMAGING REPORT Signed PATIENT: JENNIE ANDRADEOUNT: [id number] : 1955 LOCATION: ER AGE: 66 SEX: F EXAM STATUS: REG ER ORD. PHYSICIAN: KEVEN MAXWELL MD REASON: Fall, right knee pain PROCEDURE: KNEE RIGHT 4V EXAMINATION: XR KNEE 4 VIEWS WITH PATELLA_RT, XR FEMUR_RIGHT CLINICAL HISTORY: Right lower extremity pain following fall. TECHNIQUE: XR KNEE 4 VIEWS WITH PATELLA_RT, XR FEMUR_RIGHT COMPARISON: Right knee radiographs 12/19/2021 FINDINGS/ IMPRESSION: RIGHT FEMUR: No evidence of acute fracture. Right hip joint incompletely evaluated. Vascular calcifications. RIGHT KNEE: No definitive evidence of acute fracture. Medial and lateral compartment narrowing, suboptimally evaluated due to patient positioning. No joint effusion. Vascular calcifications. Electronically signed by: Kelby Fermin DO (12/20/2021 6:57 PM) AMMONCHAI DICTATED AND SIGNED BY: KELBY FERMIN DO DATE: 12/20/211852 CC: KEVEN MAXWELL MD; YOKASTA HAN ~ [][address] [address] IMAGING REPORT Signed PATIENT: SHABBIR ANDRADECCOUNT: [id number] : 1955 LOCATION: ER AGE: 66 SEX: F EXAM STATUS: REG ER ORD. PHYSICIAN: KEVEN MAXWELL MD REASON: Fall, right upper leg and pelvis pain PROCEDURE: CT PELVIS WO CONTRAST EXAM: CT pelvis without IV contrast DATE: 12/20/2021 6:20 PM COMPARISON: No prior INDICATION: Fall, right upper leg and pelvis pain TECHNIQUE: CT of the affected site was performed without IV contrast.Axial, sagittal and coronal images were created at the CT console workstation. PQRS compliance statement - One or more of the following individualized dose reduction techniques were utilized for this study: 1. Automated exposure control 2. Adjustment of the mA and/or kV according to patient size 3. Use of iterative reconstruction technique FINDINGS: There is a lucency through the anterior cortex of the right femoral neck with apparent posterior lateral extension (series 2 image 41) suspicious for nondis placed right intertrochanteric proximal femoral fracture. This does not extend to the posterior cortex. Mild soft tissue swelling and small right hip joint effusion. Decreased bone mineral density. Moderate colonic stool content is seen. Trace fat-containing periumbilical hernia is seen. IMPRESSION: Nondisplaced intertrochanteric right femoral neck fracture is suspected. This ca n be further assessed by MRI if clinically indicated. Background of decreased bone mineral density. Electronically signed by: Benoit Perez MD (12/20/2021 6:58 PM) [facility] DICTATED AND SIGNED BY: BENOIT PEREZ MD DATE: 12/20/211843 CC: KEVEN MAXWELL MD; YOKASTA HAN ~ Heart Score: C/O Chest Pain: N/A Risk Factors: Risk Factors: DM, Current or recent (<one month) smoker, HTN, HLP, family history of CAD, obesity. Risk Scores: Score 0 - 3: 2.5% MACE over next 6 weeks - Discharge Home Score 4 - 6: 20.3% MACE over next 6 weeks - Admit for Clinical Observation Score 7 - 10: 72.7% MACE over next 6 weeks - Early Invasive Strategies Course & Med Decision Making: Course & Med Decision Making Pertinent Labs and Imaging studies reviewed. (See chart for details) Discussed presentation, testing and treatment plan with Dr. Pressley-advised transfer to [facility] he will obtain a Ortho consult. Order admission labs and chest x-ray. Note patient refused chest x-ray. Impression: 1. Fall- Trip 2. Contusion Rt. Knee 3. DJD 4. Osteoporosis 5. Rt. Hip Non-displaced - 6. Hx. Recent CVA- Rehab. at [facility]. 7. Elevated CK 314. [] Cristal Disclaimer: Cristal Disclaimer: This electronic medical record was generated, in whole or in part, using a voice recognition dictation system. Departure Departure: Referrals: YOKASTA HAN (PCP) Cristal Disclaimer This chart was dictated in whole or in part using Voice Recognition software in a busy, high-work load, and often noisy Emergency Department environment. It may contain unintended and wholly unrecognized errors or omissions. Dragon Disclaimer This chart was dictated in whole or in part using Voice Recognition software in a busy, high-work load, and often noisy Emergency Department environment. It may contain unintended and wholly unrecognized errors or omissions. Dragon Disclaimer This chart was dictated in whole or in part using Voice Recognition software in a busy, high-work load, and often noisy Emergency Department environment. It may contain unintended and wholly unrecognized errors or omissions. KEVEN MAXWELL MD December 20, 2021 18:11
[2021-12-20] MEDS ORDERED: MORPHINE SULFATE 10 MG/ML SYRINGE. SQ ONE (18:15)
[2021-12-20] MEDS ORDERED: MORPHINE SULFATE 10 MG/ML SYRINGE. ONE (18:28)
--- NOTE | 2021-12-20 19:00 | RAD ---
EXAMINATION: XR KNEE 4 VIEWS WITH PATELLA_RT, XR FEMUR_RIGHT CLINICAL HISTORY: Right lower extremity pain following fall. TECHNIQUE: XR KNEE 4 VIEWS WITH PATELLA_RT, XR FEMUR_RIGHT COMPARISON: Right knee radiographs 12/19/2021 FINDINGS/ IMPRESSION: RIGHT FEMUR: No evidence of acute fracture. Right hip joint incompletely evaluated. Vascular calcifications. RIGHT KNEE: No definitive evidence of acute fracture. Medial and lateral compartment narrowing, suboptimally eval uated due to patient positioning. No joint effusion. Vascular calcifications. Electronically signed by: Kelby Feliz DO (12/20/2021 6:57 PM) [facility]ABETH
--- NOTE | 2021-12-20 19:01 | RAD ---
EXAM: CT pelvis without IV contrast DATE: 12/20/2021 6:20 PM COMPARISON: No prior INDICATION: Fall, right upper leg and pelvis pain TECHNIQUE: CT of the affected site was performed without IV contrast.Axial, sagittal and coronal imag es were created at the CT console workstation. PQRS compliance statement - One or more of the following individualized dose reduction techniques wer e utilized for this study: 1. Automated exposure control 2. Adjustment of the mA and/or kV according to patient size 3. Use of iterative reconstruction technique FINDINGS: There is a lucency through the anterior cortex of the right femoral neck with apparent posterior late ral extension (series 2 image 41) suspicious for nondisplaced right intertrochanteric proximal femora l fracture. This does not extend to the posterior cortex. Mild soft tissue swelling and small right h ip joint effusion. Decreased bone mineral density. Moderate colonic stool content is seen. Trace fat-containing periumbilical hernia is seen. IMPRESSION: Nondisplaced intertrochanteric right femoral neck fracture is suspected. This can be further assessed by MRI if clinically indicated. Background of decreased bone mineral density. Electronically signed by: Benoit Rivera MD (12/20/2021 6:58 PM) HAMLET
[2021-12-20] MEDS ORDERED: IV RINGERS SOLUTION,LACTATED 1,000 ML IV SCH (19:45)
[2021-12-20 20:16] VITALS: BP 155/72
[2021-12-20 20:59] LABS: BASO % 0 % (0-3); EOS % 0 % (0-3); HEMATOCRIT 38.3 % (36.0-47.0); HEMOGLOBIN 12.4 g/dL (12.0-15.5); LYMPH % 17 % (24-48); MEAN CORPUSCULAR HEMOGLOBIN 30 pg (25-35); MEAN CORPUSCULAR HGB CONC 32 g/dL (31-37); MEAN CORPUSCULAR VOLUME 91 fL (79-100); MONO # 0.5 x10^3/uL (0.0-1.1); MONO % 8 % (0-9); NEUT # 4.7 x10^3uL (1.8-7.7); NEUT % 75 % (31-73); PLATELET COUNT 149 x10^3/uL (140-400); WHITE BLOOD COUNT 6.2 x10^3/uL (4.0-11.0)
[2021-12-20 21:09] LABS: CALCIUM 9.4 mg/dL (8.5-10.1); CREATININE 0.7 mg/dL (0.6-1.0); GFR 101.6; POTASSIUM 4.4 mmol/L (3.5-5.1)
[2021-12-20 21:22] LABS: ALBUMIN 3.9 g/dL (3.4-5.0); DIRECT BILIRUBIN 0.1 mg/dL (0.0-0.2); TOTAL BILIRUBIN 0.6 mg/dL (0.2-1.0); TOTAL PROTEIN 7.2 g/dL (6.4-8.2)
--- NOTE | 2021-12-21 06:22 | EKG ---
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
== END 2021-12-20 21:07 | disposition short-term general hospital (02) ==
LOC: ER 17:56
DX: S80.01XA Contusion of right knee, initial encounter (principal); M19.90 Unspecified osteoarthritis, unspecified site; M81.0 Age-related osteoporosis without current pathological fracture; M25.551 Pain in right hip; R74.8 Abnormal levels of other serum enzymes; Z20.822 Contact with and (suspected) exposure to COVID-19; Z86.73 Personal history of transient ischemic attack (TIA), and cerebral infarction without residual deficits; W01.0XXA Fall on same level from slipping, tripping and stumbling without subsequent striking against object, initial encounter; Y93.89 Activity, other specified; Y92.89 Other specified places as the place of occurrence of the external cause; Y99.8 Other external cause status
CPT/HCPCS: 72192; 73552; 73564; 80048; 80076; 82550; 83880; 84443; 84484; 85025; 93005; 96360; 96372; 99285; C9803; J2270; J7120; U0003